=== PATIENT | male | born 1945 | race Caucasian/White ===

== ENCOUNTER 2023-07-14 17:54 | Inpatient (IN) | payer MEDICARE, BC ==
[~2023-07-14] VITALS: Ht 182.9 cm; Wt 84.6 kg
[2023-07-14] MEDS ORDERED: BUPR300T92 (18:11)
[2023-07-14] MEDS ORDERED: AMLO1TAB24 (18:11)
[2023-07-14] MEDS ORDERED: LOSA50TA28 (18:11)
[2023-07-14] MEDS ORDERED: EZET10TA21 (18:11)
[2023-07-14] MEDS ORDERED: METO1TAB32 (18:11)
[2023-07-14] MEDS ORDERED: LANS30CA93 (18:11)
[2023-07-14] MEDS: METOPROLOL TART 25 MG TABLET PO ONE (19:30)
[2023-07-14] MEDS ORDERED: METOPROLOL 5 MG/5 ML VIAL IV PRN (19:30)
[2023-07-14 19:45] LABS: BASO % 0.1 % (0.0-1.0); EOS % 0.2 % (0.0-3.0); HEMATOCRIT 37.3 % (42.0-52.0); HEMOGLOBIN 13.3 g/dl (13.5-17.5); LYMPH # 1.1 10^3/uL (1.5-5.0); LYMPH % 8.8 % (24.0-44.0); MEAN CORPUSCULAR HEMOGLOBIN 33.3 pg (27.0-33.0); MEAN CORPUSCULAR HGB CONC 35.7 g/dl (32.0-36.5); MEAN CORPUSCULAR VOLUME 93.3 fl (80.0-96.0); MONO # 0.9 10^3/uL (0.0-0.8); MONO % 7.5 % (2.0-8.0); NEUTROPHILS # 10.5 10^3/uL (1.5-8.5); NEUTROPHILS % 82.9 % (36.0-66.0); PLATELET COUNT, AUTOMATED 255 10^3/uL (150-450); WHITE BLOOD COUNT 12.6 10^3/uL (4.0-10.0)
[2023-07-14 20:04] LABS: INR 1.16; PARTIAL THROMBOPLASTIN TIME 27.1 SECONDS (24.8-34.2); PROTHROMBIN TIME 14.4 SECONDS (12.5-14.5)
[2023-07-14 20:16] LABS: ALBUMIN 3.7 G/DL (3.2-5.2); BILIRUBIN,DIRECT 0.4 MG/DL (<0.4); BILIRUBIN,TOTAL 1.4 MG/DL (0.3-1.2); CALCIUM LEVEL 9.8 MG/DL (8.3-10.6); CREATININE FOR GFR 2.45 MG/DL (0.70-1.30); GLOMERULAR FILTRATION RATE 27.4 (>42); POTASSIUM SERUM 4.1 MMOL/L (3.5-5.1); TOTAL PROTEIN 6.6 G/DL (5.7-8.2)
[2023-07-14 20:24] LABS: RSV AMPLIFICATION NEGATIVE (NEGATIVE)
[2023-07-14] MEDS: NS 1,000 ML IV ONE (20:28)
[2023-07-14] MEDS ORDERED: HYDROMORPHONE HCL 0.5 MG/ 0.5 ML SYRINGE IV PRN (23:40)
[2023-07-14] MEDS ORDERED: hydrALAZINE 20MG/ML 1ML VIAL IV PRN (23:55)
[2023-07-15] MEDS: NS 1,000 ML IV SCH (01:09)
[2023-07-15] MEDS: HEPARIN DRIP 25,000 UNITS in IV 1 EA IV SCH (01:21)
[2023-07-15] MEDS ORDERED: LOSA50TA28 PO (01:37)
[2023-07-15] MEDS ORDERED: LANS30CA PO (01:37)
[2023-07-15] MEDS ORDERED: AMLO1TAB24 PO (01:37)
[2023-07-15] MEDS ORDERED: MULT-40 PO (01:37)
[2023-07-15] MEDS ORDERED: CHEL50TA2 PO (01:37)
[2023-07-15] MEDS ORDERED: EZET10TA21 PO (01:37)
[2023-07-15] MEDS ORDERED: BUPR300T92 PO (01:37)
[2023-07-15] MEDS ORDERED: OYST500T92 PO (01:37)
[2023-07-15] MEDS ORDERED: ESTE1TAB4 PO (01:37)
[2023-07-15] MEDS ORDERED: RA T500C2 PO (01:37)
[2023-07-15] MEDS ORDERED: METO1TAB32 PO (01:37)
[2023-07-15] MEDS ORDERED: HOME MED LIST COMPLETE! XX SCH (01:40)
[2023-07-15 02:03] LABS: HEMATOCRIT 35.1 % (42.0-52.0); HEMOGLOBIN 12.7 g/dl (13.5-17.5); MEAN CORPUSCULAR HGB CONC 36.2 g/dl (32.0-36.5); MEAN CORPUSCULAR VOLUME 94.1 fl (80.0-96.0); PLATELET COUNT, AUTOMATED 258 10^3/uL (150-450); RED BLOOD COUNT 3.73 10^6/uL (4.30-6.10); WHITE BLOOD COUNT 10.2 10^3/uL (4.0-10.0)
[2023-07-15 02:18] VITALS: BP 132/74; TEMP 98.2; O2SAT 97
[2023-07-15 05:47] LABS: HEMOGLOBIN 12.3 g/dl (13.5-17.5); MEAN CORPUSCULAR HEMOGLOBIN 33.2 pg (27.0-33.0); MEAN CORPUSCULAR HGB CONC 35.1 g/dl (32.0-36.5); MEAN CORPUSCULAR VOLUME 94.3 fl (80.0-96.0); PLATELET COUNT, AUTOMATED 232 10^3/uL (150-450); RED BLOOD COUNT 3.71 10^6/uL (4.30-6.10); WHITE BLOOD COUNT 9.5 10^3/uL (4.0-10.0)
[2023-07-15 06:15] LABS: ALBUMIN 3.3 G/DL (3.2-5.2); BILIRUBIN,TOTAL 1.4 MG/DL (0.3-1.2); CALCIUM LEVEL 9.2 MG/DL (8.3-10.6); CREATININE FOR GFR 2.08 MG/DL (0.70-1.30); GLOMERULAR FILTRATION RATE 33.1 (>42); POTASSIUM SERUM 3.7 MMOL/L (3.5-5.1); TOTAL PROTEIN 5.9 G/DL (5.7-8.2)
[2023-07-15] MEDS: dilTIAZem 25MG/5ML VIAL IV STA ×2 (06:21→15:28)
[2023-07-15] MEDS: NS 500 ML IV STA (06:45)
[2023-07-15] MEDS: HEPARIN SOD (PORCINE) 5000UNITS/ML 1ML VIAL/SYRINGE IV ONE (07:17)
[2023-07-15 08:00] VITALS: BP 118/87; TEMP 97.8; O2SAT 97
[2023-07-15] MEDS: METOPROLOL TART 50 MG TAB PO SCH (09:10)
[2023-07-15] MEDS: PANTOPRAZOLE 40MG VIAL IV SCH (09:10)
[2023-07-15] MEDS ORDERED: PILL CUTTER 1 EACH XX ONE (10:56)
[2023-07-15] MEDS: SIMETHICONE 80MG CHEW TAB PO SCH (10:59)
[2023-07-15 11:59] VITALS: BP_SYST 120; BP_SYST 134; BP_DIAS 73; BP_DIAS 78; TEMP 97.7; TEMP 98.1; O2SAT 97
[2023-07-15 14:00] VITALS: BP 122/66; TEMP 98.1; O2SAT 97
[2023-07-15 14:29] LABS: FREE T4 1.16 NG/DL (0.89-1.76); THYROID STIMULATING HORMONE 0.26 uIU/ML (0.55-4.78)
[2023-07-15] MEDS: HEPARIN SOD (PORCINE) 5000UNITS/ML 1ML VIAL/SYRINGE SQ SCH (14:50)
[2023-07-15] MEDS: EZETIMIBE 10MG TABLET (ZETIA) PO SCH (14:51)
[2023-07-15] MEDS: buPROPion **XL** TABLET 150MG (WELLBUTRIN XL) PO SCH (14:51)
[2023-07-15] MEDS: amLODIPine 5 MG TAB PO SCH (14:52)
[2023-07-15] MEDS: CALCIUM/VITAMIN D 500 MG TAB PO SCH (14:52)
[2023-07-15] MEDS: diltiaZEM 125 MG in NS 100 ML IV SCH (15:29)
[2023-07-15 16:00] VITALS: BP 138/76; TEMP 97.9; O2SAT 94
[2023-07-15 20:56] VITALS: BP 124/72; TEMP 97.9; O2SAT 95
[2023-07-16] VITALS (10 sets, daily range): BP systolic 125–170; BP diastolic 65–126; TEMP 98–99.5; O2SAT 91–96
[2023-07-16 05:24] LABS: BASO % 0.2 % (0.0-1.0); EOS # 0.1 10^3/uL (0.0-0.5); EOS % 1.3 % (0.0-3.0); HEMATOCRIT 34.4 % (42.0-52.0); HEMOGLOBIN 12.2 g/dl (13.5-17.5); LYMPH # 1.2 10^3/uL (1.5-5.0); LYMPH % 13.4 % (24.0-44.0); MEAN CORPUSCULAR HEMOGLOBIN 33.5 pg (27.0-33.0); MEAN CORPUSCULAR HGB CONC 35.5 g/dl (32.0-36.5); MEAN CORPUSCULAR VOLUME 94.5 fl (80.0-96.0); MONO # 0.7 10^3/uL (0.0-0.8); MONO % 7.7 % (2.0-8.0); NEUTROPHILS # 6.9 10^3/uL (1.5-8.5); NEUTROPHILS % 76.7 % (36.0-66.0); PLATELET COUNT, AUTOMATED 241 10^3/uL (150-450); RED BLOOD COUNT 3.64 10^6/uL (4.30-6.10)
[2023-07-16 05:59] LABS: CREATININE FOR GFR 1.27 MG/DL (0.70-1.30); GLOMERULAR FILTRATION RATE 58.5 (>42); PHOSPHORUS LEVEL 3.4 MG/DL (2.4-5.1); POTASSIUM SERUM 3.1 MMOL/L (3.5-5.1)
[2023-07-16] MEDS: dilTIAZem 60 MG TAB PO SCH (08:18)
[2023-07-16] MEDS: POTASSIUM CHLORIDE 10MEQ SR TABLET PO SCH (08:19)
[2023-07-16] MEDS: dilTIAZem 25MG/5ML VIAL IV STA (14:15)
[2023-07-16] MEDS: diltiaZEM 125 MG in NS 100 ML IV SCH (14:55)
[2023-07-16 17:04] LABS: MAGNESIUM LEVEL 1.6 MG/DL (1.8-2.4)
[2023-07-16] MEDS: MAG SULF 1GM/100ML (MAG RUN) 1 GM in IV 1 EA IV SCH (18:56)
[2023-07-17 00:02] VITALS: BP 135/63; TEMP 99.3; O2SAT 95
[2023-07-17 04:14] VITALS: BP 128/60; TEMP 98.9; O2SAT 94
[2023-07-17 05:12] LABS: BASO % 0.3 % (0.0-1.0); EOS # 0.1 10^3/uL (0.0-0.5); EOS % 1.3 % (0.0-3.0); HEMATOCRIT 32.3 % (42.0-52.0); HEMOGLOBIN 11.8 g/dl (13.5-17.5); LYMPH # 1.2 10^3/uL (1.5-5.0); LYMPH % 12.4 % (24.0-44.0); MEAN CORPUSCULAR HEMOGLOBIN 34.5 pg (27.0-33.0); MEAN CORPUSCULAR HGB CONC 36.5 g/dl (32.0-36.5); MEAN CORPUSCULAR VOLUME 94.4 fl (80.0-96.0); MONO # 0.7 10^3/uL (0.0-0.8); MONO % 7.6 % (2.0-8.0); NEUTROPHILS # 7.5 10^3/uL (1.5-8.5); NEUTROPHILS % 77.7 % (36.0-66.0); PLATELET COUNT, AUTOMATED 232 10^3/uL (150-450); RED BLOOD COUNT 3.42 10^6/uL (4.30-6.10); WHITE BLOOD COUNT 9.7 10^3/uL (4.0-10.0)
[2023-07-17 05:43] LABS: ALBUMIN 2.8 G/DL (3.2-5.2); BLOOD UREA NITROGEN 22 MG/DL (9-23); CALCIUM LEVEL 8.3 MG/DL (8.3-10.6); CARBON DIOXIDE LEVEL 29 MMOL/L (20-31); CHLORIDE LEVEL 106 MMOL/L (98-107); CREATININE FOR GFR 1.02 MG/DL (0.70-1.30); GLOMERULAR FILTRATION RATE > 60.0 (>42); GLUCOSE, FASTING 98 MG/DL (74-106); PHOSPHORUS LEVEL 2.8 MG/DL (2.4-5.1); POTASSIUM SERUM 3.2 MMOL/L (3.5-5.1); SODIUM LEVEL 143 MMOL/L (136-145)
[2023-07-17 08:00] VITALS: BP 158/80; TEMP 99.4; O2SAT 95
[2023-07-17 08:16] LABS: MAGNESIUM LEVEL 2.2 MG/DL (1.8-2.4)
[2023-07-17] MEDS: POTASSIUM CHLORIDE 10MEQ SR TABLET PO SCH (08:17)
[2023-07-17] MEDS: KCL 10MEQ/100ML SWI (KRUN) 10 MEQ in IV 1 EA IV SCH (08:17)
[2023-07-17] MEDS ORDERED: HEPARIN SOD (PORCINE) 5000UNITS/ML 1ML VIAL/SYRINGE IV PRN (11:20)
[2023-07-17] MEDS ORDERED: METOPROLOL 5 MG/5 ML VIAL IV SCH (11:30)
[2023-07-17] MEDS: HEPARIN SOD (PORCINE) 5000UNITS/ML 1ML VIAL/SYRINGE IV ONE (13:12)
[2023-07-17] MEDS: HEPARIN DRIP 25,000 UNITS in IV 1 EA IV SCH (13:13)
[2023-07-17 16:00] VITALS: BP 137/68; TEMP 97.7; O2SAT 99
[2023-07-17 18:59] VITALS: BP 136/71; TEMP 99.7; O2SAT 98
[2023-07-18] VITALS (9 sets, daily range): BP systolic 119–145; BP diastolic 58–75; TEMP 97.3–99.5; O2SAT 90–97
[2023-07-18 06:01] LABS: BASO % 0.2 % (0.0-1.0); EOS # 0.2 10^3/uL (0.0-0.5); EOS % 1.9 % (0.0-3.0); HEMATOCRIT 30.9 % (42.0-52.0); HEMOGLOBIN 11.1 g/dl (13.5-17.5); LYMPH # 1.5 10^3/uL (1.5-5.0); LYMPH % 13.1 % (24.0-44.0); MEAN CORPUSCULAR HEMOGLOBIN 33.4 pg (27.0-33.0); MEAN CORPUSCULAR HGB CONC 35.9 g/dl (32.0-36.5); MEAN CORPUSCULAR VOLUME 93.1 fl (80.0-96.0); MONO # 0.8 10^3/uL (0.0-0.8); MONO % 6.8 % (2.0-8.0); NEUTROPHILS # 8.9 10^3/uL (1.5-8.5); PLATELET COUNT, AUTOMATED 243 10^3/uL (150-450); RED BLOOD COUNT 3.32 10^6/uL (4.30-6.10); WHITE BLOOD COUNT 11.5 10^3/uL (4.0-10.0)
[2023-07-18 06:37] LABS: ALBUMIN 2.6 G/DL (3.2-5.2); BLOOD UREA NITROGEN 18 MG/DL (9-23); CALCIUM LEVEL 7.7 MG/DL (8.3-10.6); CARBON DIOXIDE LEVEL 24 MMOL/L (20-31); CHLORIDE LEVEL 106 MMOL/L (98-107); CREATININE FOR GFR 0.87 MG/DL (0.70-1.30); GLOMERULAR FILTRATION RATE > 60.0 (>42); GLUCOSE, FASTING 99 MG/DL (74-106); MAGNESIUM LEVEL 1.7 MG/DL (1.8-2.4); PHOSPHORUS LEVEL 2.2 MG/DL (2.4-5.1); SODIUM LEVEL 142 MMOL/L (136-145)
[2023-07-18] MEDS: MAG SULF 1GM/100ML (MAG RUN) 1 GM in IV 1 EA IV SCH (09:57)
[2023-07-18] MEDS: POTASSIUM PHOSPHATE INJ 30 MMOL in D5W 500 ML IV ONE (12:18)
[2023-07-18] MEDS ORDERED: GASTROGRAFIN SOLUTION 30ML As Ordered ONE (15:05)
[2023-07-18] MEDS ORDERED: fentaNYL 100 MCG/2 ML INJECTION As Ordered ONE (17:57)
[2023-07-18] MEDS ORDERED: MIDAZOLAM INJ 2MG/2ML VIAL As Ordered ONE (17:57)
[2023-07-18] MEDS ORDERED: propofoL 200 MG/20 ML VIAL As Ordered ONE (17:58)
[2023-07-18] MEDS ORDERED: LIDOCAINE 2% 100MG/5ML SDV (FOR ANES.) As Ordered ONE (17:59)
[2023-07-18] MEDS ORDERED: ONDANSETRON 4MG 2ML VIAL As Ordered ONE (18:00)
[2023-07-18] MEDS ORDERED: ESMOLOL INJ 100MG/10ML VIAL As Ordered ONE (18:41)
[2023-07-18] MEDS ORDERED: ROCURONIUM BROMIDE 50MG/5ML VIAL As Ordered ONE (18:42)
[2023-07-18] MEDS: ceFAZolin 2 GM/D5W 50 ML IV BAG As Ordered ONE (18:52)
[2023-07-18] MEDS ORDERED: SUGAMMADEX SODIUM 500 MG/5 ML VIAL (BRIDION) As Ordered ONE (18:55)
[2023-07-18] MEDS ORDERED: ONDANSETRON 4MG 2ML VIAL IV PRN (19:25)
[2023-07-18] MEDS ORDERED: LR 1,000 ML IV SCH (19:25)
[2023-07-18] MEDS ORDERED: fentaNYL 100 MCG/2 ML INJECTION IV PRN (19:25)
[2023-07-18] MEDS: KETOROLAC 30 MG/ML 1ML VIAL IV SCH (19:48)
[2023-07-18] MEDS: HYDROMORPHONE HCL 0.5 MG/ 0.5 ML SYRINGE IV PRN (19:49)
[2023-07-19 03:38] VITALS: BP 124/69; TEMP 97.2; O2SAT 90
[2023-07-19 07:04] LABS: HEMATOCRIT 30.5 % (42.0-52.0); HEMOGLOBIN 11.2 g/dl (13.5-17.5); MEAN CORPUSCULAR HEMOGLOBIN 34.3 pg (27.0-33.0); MEAN CORPUSCULAR HGB CONC 36.7 g/dl (32.0-36.5); MEAN CORPUSCULAR VOLUME 93.3 fl (80.0-96.0); RED BLOOD COUNT 3.27 10^6/uL (4.30-6.10); WHITE BLOOD COUNT 14.7 10^3/uL (4.0-10.0)
[2023-07-19 07:05] LABS: BASO % 0.1 % (0.0-1.0); LYMPH # 0.6 10^3/uL (1.5-5.0); LYMPH % 3.7 % (24.0-44.0); MONO # 0.4 10^3/uL (0.0-0.8); NEUTROPHILS # 13.5 10^3/uL (1.5-8.5); PLATELET COUNT, AUTOMATED 262 10^3/uL (150-450)
[2023-07-19 07:40] LABS: ALBUMIN 2.4 G/DL (3.2-5.2); BLOOD UREA NITROGEN 18 MG/DL (9-23); CALCIUM LEVEL 8.1 MG/DL (8.3-10.6); CARBON DIOXIDE LEVEL 25 MMOL/L (20-31); CHLORIDE LEVEL 109 MMOL/L (98-107); GLOMERULAR FILTRATION RATE > 60.0 (>42); GLUCOSE, FASTING 147 MG/DL (74-106); PHOSPHORUS LEVEL 3.3 MG/DL (2.4-5.1); POTASSIUM SERUM 3.6 MMOL/L (3.5-5.1); SODIUM LEVEL 142 MMOL/L (136-145)
[2023-07-19 08:07] VITALS: BP 131/65; TEMP 97.7; O2SAT 95
[2023-07-19 12:27] VITALS: BP 139/90; TEMP 97.5; O2SAT 94
[2023-07-19 15:41] VITALS: BP 123/63; TEMP 97.6; O2SAT 95
[2023-07-19 19:48] VITALS: BP 128/72; TEMP 97.6; O2SAT 97
[2023-07-20] VITALS (7 sets, daily range): BP systolic 123–142; BP diastolic 60–98; TEMP 97.2–98.3; O2SAT 91–96
[2023-07-20 06:34] LABS: HEMATOCRIT 28.1 % (42.0-52.0); HEMOGLOBIN 10.2 g/dl (13.5-17.5); LYMPH # 1.4 10^3/uL (1.5-5.0); LYMPH % 10.3 % (24.0-44.0); MEAN CORPUSCULAR HEMOGLOBIN 34.5 pg (27.0-33.0); MEAN CORPUSCULAR HGB CONC 36.3 g/dl (32.0-36.5); MEAN CORPUSCULAR VOLUME 94.9 fl (80.0-96.0); MONO # 0.7 10^3/uL (0.0-0.8); NEUTROPHILS # 11.6 10^3/uL (1.5-8.5); NEUTROPHILS % 83.7 % (36.0-66.0); PLATELET COUNT, AUTOMATED 269 10^3/uL (150-450); RED BLOOD COUNT 2.96 10^6/uL (4.30-6.10); WHITE BLOOD COUNT 13.9 10^3/uL (4.0-10.0)
[2023-07-20 07:01] LABS: ALBUMIN 2.3 G/DL (3.2-5.2); BLOOD UREA NITROGEN 27 MG/DL (9-23); CALCIUM LEVEL 8.1 MG/DL (8.3-10.6); CARBON DIOXIDE LEVEL 27 MMOL/L (20-31); CHLORIDE LEVEL 110 MMOL/L (98-107); CREATININE FOR GFR 0.96 MG/DL (0.70-1.30); GLOMERULAR FILTRATION RATE > 60.0 (>42); GLUCOSE, FASTING 109 MG/DL (74-106); PHOSPHORUS LEVEL 2.1 MG/DL (2.4-5.1); POTASSIUM SERUM 3.3 MMOL/L (3.5-5.1); SODIUM LEVEL 145 MMOL/L (136-145)
[2023-07-20 09:33] LABS: EOS % 0.1 % (0.0-3.0)
[2023-07-20 09:34] LABS: BASO % 0.1 % (0.0-1.0)
[2023-07-20] MEDS: AMIODARONE HCL 150 MG in IV 1 EA IV ONE (10:17)
[2023-07-20] MEDS: AMIODARONE HCL 360 MG in IV 1 EA IV SCH ×2 (11:43→17:29)
[2023-07-20] MEDS: KCL 10MEQ/100ML SWI (KRUN) 10 MEQ in IV 1 EA IV SCH ×2 (14:04→15:21)
[2023-07-21 03:57] VITALS: BP 157/88; TEMP 97.9; O2SAT 94
[2023-07-21 05:25] LABS: BASO % 0.2 % (0.0-1.0); EOS % 1.7 % (0.0-3.0); HEMATOCRIT 30.2 % (42.0-52.0); HEMOGLOBIN 10.8 g/dl (13.5-17.5); LYMPH % 18.2 % (24.0-44.0); MEAN CORPUSCULAR HEMOGLOBIN 34.2 pg (27.0-33.0); MEAN CORPUSCULAR HGB CONC 35.8 g/dl (32.0-36.5); MEAN CORPUSCULAR VOLUME 95.6 fl (80.0-96.0); MONO % 4.2 % (2.0-8.0); NEUTROPHILS % 75.2 % (36.0-66.0); PLATELET COUNT, AUTOMATED 281 10^3/uL (150-450); RED BLOOD COUNT 3.16 10^6/uL (4.30-6.10); WHITE BLOOD COUNT 11.6 10^3/uL (4.0-10.0)
[2023-07-21 05:26] LABS: EOS # 0.2 10^3/uL (0.0-0.5); LYMPH # 2.1 10^3/uL (1.5-5.0); MONO # 0.5 10^3/uL (0.0-0.8); NEUTROPHILS # 8.7 10^3/uL (1.5-8.5)
[2023-07-21 05:49] LABS: ALBUMIN 2.4 G/DL (3.2-5.2); BLOOD UREA NITROGEN 23 MG/DL (9-23); CALCIUM LEVEL 7.9 MG/DL (8.3-10.6); CARBON DIOXIDE LEVEL 27 MMOL/L (20-31); CHLORIDE LEVEL 107 MMOL/L (98-107); CREATININE FOR GFR 0.89 MG/DL (0.70-1.30); GLOMERULAR FILTRATION RATE > 60.0 (>42); GLUCOSE, FASTING 96 MG/DL (74-106); MAGNESIUM LEVEL 1.7 MG/DL (1.8-2.4); PHOSPHORUS LEVEL 2.2 MG/DL (2.4-5.1); POTASSIUM SERUM 3.1 MMOL/L (3.5-5.1); SODIUM LEVEL 143 MMOL/L (136-145)
[2023-07-21] MEDS: MAG SULF 1GM/100ML (MAG RUN) 1 GM in IV 1 EA IV SCH (07:52)
[2023-07-21 08:11] VITALS: BP 136/85; TEMP 97.4; O2SAT 95
[2023-07-21] MEDS: KCL 10MEQ/100ML SWI (KRUN) 10 MEQ in IV 1 EA IV SCH (10:22)
[2023-07-21] MEDS ORDERED: BISACODYL 10MG SUPP PR PRN (11:00)
[2023-07-21] MEDS: ENOXAPARIN 100MG/1ML SYRINGE (J1650 PER 10MG) SC SCH (11:53)
[2023-07-21 12:17] VITALS: BP 144/78; TEMP 97.8; O2SAT 99
[2023-07-21] MEDS: AMIODARONE HCL 360 MG in IV 1 EA IV SCH (12:26)
[2023-07-21] MEDS: ALVIMOPAN 12 MG CAPSULE (ENTEREG) PO SCH (12:37)
[2023-07-21 15:56] VITALS: BP 145/80; TEMP 98.3; O2SAT 98
[2023-07-21] MEDS: KCL 10MEQ/100ML SWI (KRUN) 10 MEQ in IV 1 EA IV ONE (17:06)
[2023-07-21 18:53] VITALS: BP 142/69; TEMP 97.8; O2SAT 95
[2023-07-21] MEDS: BISACODYL 10MG SUPP PR SCH (20:26)
[2023-07-21 23:45] VITALS: BP 145/78; TEMP 98.5; O2SAT 97
[2023-07-22 03:18] VITALS: BP 125/59; TEMP 98.2; O2SAT 98
[2023-07-22 05:40] LABS: HEMATOCRIT 28.9 % (42.0-52.0); HEMOGLOBIN 10.4 g/dl (13.5-17.5); MEAN CORPUSCULAR HEMOGLOBIN 33.9 pg (27.0-33.0); MEAN CORPUSCULAR VOLUME 94.1 fl (80.0-96.0); PLATELET COUNT, AUTOMATED 253 10^3/uL (150-450); RED BLOOD COUNT 3.07 10^6/uL (4.30-6.10); WHITE BLOOD COUNT 10.6 10^3/uL (4.0-10.0)
[2023-07-22 06:12] LABS: ALBUMIN 2.4 G/DL (3.2-5.2); ALKALINE PHOSPHATASE 55 U/L (46-116); ALT/SGPT 102 U/L (7.0-40); AST/SGOT 51 U/L (<34); BILIRUBIN,TOTAL 0.6 MG/DL (0.3-1.2); BLOOD UREA NITROGEN 21 MG/DL (9-23); CALCIUM LEVEL 7.7 MG/DL (8.3-10.6); CARBON DIOXIDE LEVEL 28 MMOL/L (20-31); CHLORIDE LEVEL 104 MMOL/L (98-107); GLOMERULAR FILTRATION RATE > 60.0 (>42); GLUCOSE, FASTING 100 MG/DL (74-106); MAGNESIUM LEVEL 1.9 MG/DL (1.8-2.4); POTASSIUM SERUM 3.3 MMOL/L (3.5-5.1); SODIUM LEVEL 140 MMOL/L (136-145); TOTAL PROTEIN 4.9 G/DL (5.7-8.2)
[2023-07-22 07:58] VITALS: BP 155/72; TEMP 98.2; O2SAT 95
[2023-07-22] MEDS: KCL 10MEQ/100ML SWI (KRUN) 10 MEQ in IV 1 EA IV SCH (08:09)
[2023-07-22] MEDS ORDERED: RAMELTEON 8 MG TAB (ROZEREM) PO PRN (10:00)
[2023-07-22 11:40] VITALS: BP 147/68; TEMP 98; O2SAT 99
[2023-07-22 15:52] VITALS: BP 133/66; TEMP 98; O2SAT 96
[2023-07-22] MEDS: KCL 10MEQ/100ML SWI (KRUN) 10 MEQ in IV 1 EA IV ONE (18:20)
[2023-07-22 19:17] VITALS: BP 146/68; TEMP 97.7; O2SAT 99
[2023-07-22] MEDS: BENZONATATE 100MG CAPSULE PO ONE (20:20)
[2023-07-22 23:15] VITALS: BP 117/57; TEMP 98.3; O2SAT 98
[2023-07-23] VITALS (8 sets, daily range): BP systolic 114–140; BP diastolic 59–76; TEMP 97.4–98.9; O2SAT 92–97
[2023-07-23 06:22] LABS: HEMATOCRIT 28.4 % (42.0-52.0); HEMOGLOBIN 10.3 g/dl (13.5-17.5); MEAN CORPUSCULAR HEMOGLOBIN 33.4 pg (27.0-33.0); MEAN CORPUSCULAR HGB CONC 36.3 g/dl (32.0-36.5); MEAN CORPUSCULAR VOLUME 92.2 fl (80.0-96.0); PLATELET COUNT, AUTOMATED 265 10^3/uL (150-450); RED BLOOD COUNT 3.08 10^6/uL (4.30-6.10); WHITE BLOOD COUNT 10.4 10^3/uL (4.0-10.0)
[2023-07-23 06:46] LABS: BLOOD UREA NITROGEN 13 MG/DL (9-23); CALCIUM LEVEL 7.6 MG/DL (8.3-10.6); CARBON DIOXIDE LEVEL 26 MMOL/L (20-31); CHLORIDE LEVEL 105 MMOL/L (98-107); CREATININE FOR GFR 0.88 MG/DL (0.70-1.30); GLOMERULAR FILTRATION RATE > 60.0 (>42); GLUCOSE, FASTING 86 MG/DL (74-106); MAGNESIUM LEVEL 1.6 MG/DL (1.8-2.4); POTASSIUM SERUM 3.7 MMOL/L (3.5-5.1); SODIUM LEVEL 139 MMOL/L (136-145)
[2023-07-23] MEDS: MAG SULF 1GM/100ML (MAG RUN) 1 GM in IV 1 EA IV SCH (08:10)
[2023-07-23] MEDS: POTASSIUM CHLORIDE 10MEQ SR TABLET PO ONE (19:50)
[2023-07-23] MEDS: KCL 10MEQ/100ML SWI (KRUN) 10 MEQ in IV 1 EA IV SCH (19:51)
[2023-07-24 03:37] VITALS: BP 113/56; TEMP 98.8; O2SAT 95
[2023-07-24 06:35] LABS: BLOOD UREA NITROGEN 10 MG/DL (9-23); CALCIUM LEVEL 7.9 MG/DL (8.3-10.6); CARBON DIOXIDE LEVEL 28 MMOL/L (20-31); CHLORIDE LEVEL 105 MMOL/L (98-107); CREATININE FOR GFR 1.02 MG/DL (0.70-1.30); GLOMERULAR FILTRATION RATE > 60.0 (>42); GLUCOSE, FASTING 120 MG/DL (74-106); MAGNESIUM LEVEL 1.8 MG/DL (1.8-2.4); POTASSIUM SERUM 4.2 MMOL/L (3.5-5.1); SODIUM LEVEL 138 MMOL/L (136-145)
[2023-07-24 07:53] VITALS: BP 111/60; TEMP 97.7; O2SAT 96
[2023-07-24] MEDS: MAGNESIUM OXIDE 400MG TAB (MAG-OX) PO SCH (09:13)
[2023-07-24] MEDS: AMIODARONE 200 MG TAB (PACERONE) PO SCH (10:38)
[2023-07-24] MEDS: APIXABAN 5 MG TAB (ELIQUIS) PO SCH (10:39)
[2023-07-24] MEDS ORDERED: ELIQ5TAB PO (11:16)
[2023-07-24 11:39] VITALS: BP 130/63; TEMP 97.2; O2SAT 97
[2023-07-24] MEDS ORDERED: SIME80TA16 PO (13:36)
[2023-07-24] MEDS ORDERED: AMIO200T49 PO (13:36)
== END 2023-07-24 15:28 | disposition home or self-care (01) | DRG 336 ==
LOC: M ED 17:54 → M ED INP 23:38 → ENRESERV 07-15 00:09 → M PCU 07-15 02:04
PROVIDERS: ADMIT Internal Medicine; ATTEND Internal Medicine
PROC: B246ZZZ Ultrasonography of Right and Left Heart (ICD-10-PCS; 2023-07-15)
PROC: 0DN80ZZ Release Small Intestine, Open Approach (ICD-10-PCS; 2023-07-18)
PROC: 0DNU0ZZ Release Omentum, Open Approach (ICD-10-PCS; principal; 2023-07-18 14:00)
DX: K56.52 Intestinal adhesions [bands] with complete obstruction (principal); N17.9 Acute kidney failure, unspecified; E87.1 Hypo-osmolality and hyponatremia; I10 Essential (primary) hypertension; K21.9 Gastro-esophageal reflux disease without esophagitis; F32.A Depression, unspecified; F17.210 Nicotine dependence, cigarettes, uncomplicated; I48.91 Unspecified atrial fibrillation; D72.829 Elevated white blood cell count, unspecified; K57.30 Diverticulosis of large intestine without perforation or abscess without bleeding; E87.6 Hypokalemia; E83.42 Hypomagnesemia; K56.7 Ileus, unspecified; Z79.899 Other long term (current) drug therapy